=== PATIENT | female | born 1950 | race Caucasian/White ===

== ENCOUNTER → 2016-09-30 | Outpatient (CLI) | payer BC, OTHER ==
[2016-09-30 08:51] LABS: BASOPHILS # (AUTO) 0.15 10*3/UL; BASOPHILS % (AUTO) 1.2 % (0-1); EOSINOPHILS # (AUTO) 0.21 10*3/UL; EOSINOPHILS % (AUTO) 1.7 % (0-8); HEMOGLOBIN 15.3 g/dL (12.0-16.0); LYMPHOCYTES # (AUTO) 4.59 10*3/uL; MEAN CORPUSCULAR HEMOGLOBIN 27.2 PG (27-31); MEAN CORPUSCULAR HGB CONC 33.3 g/dL (33-37); MEAN CORPUSCULAR VOLUME 81.9 FL (81-99); MONOCYTES # (AUTO) 0.94 10*3/UL (0.3-0.8); MONOCYTES % (AUTO) 7.7 % (5-15); NEUTROPHILS # (AUTO) 6.22 10*3/UL; NEUTROPHILS % (AUTO) 50.9 % (50-80); RED BLOOD COUNT 5.62 10^6/uL (4.20-5.40)
[2016-09-30 08:56] LABS: PLATELET MORPHOLOGY COMMENT NORMAL MORPHOLOGY (NORM); RBC MORPHOLOGY COMMENT NORMAL MORPHOLOGY (NORM); WBC MORPHOLOGY COMMENT NORMAL MORPHOLOGY (NORM)
[2016-09-30 09:03] LABS: BLOOD UREA NITROGEN 23 mg/dL (7-22); BUN/CREATININE RATIO 28.75 (6-20); CALCIUM 9.1 mg/dL (8.7-10.7); CHOL/HDL RATIO 4.97 RATIO (0-4.0); EST GLOMERULAR FILTRATION > 60 (>60 ml/min/1.73m(2)); HDL CHOLESTEROL 36 mg/dL (40-150); SERUM ALBUMIN 4.4 g/dL (3.5-4.8); SERUM CHOLESTEROL 179 mg/dL (120-200)
[2016-09-30 10:37] LABS: FREE T4 (FREE THYROXINE) 1.31 ng/dL (0.93-1.71)
== END ==
LOC: LAB 08:33
PROVIDERS: ATTEND Internal Medicine
DX: E03.9 Hypothyroidism, unspecified (principal); R53.83 Other fatigue; G25.9 Extrapyramidal and movement disorder, unspecified; E66.8 Other obesity; Z86.711 Personal history of pulmonary embolism
CPT/HCPCS: 36415; 80053; 80061; 84439; 84443; 85025; 99214; G0463

== ENCOUNTER → 2016-11-02 | Outpatient (CLI) | payer OTHER, BC | LOC: LAB 07:58 | PROVIDERS: ATTEND Internal Medicine | DX: E03.9 Hypothyroidism, unspecified (principal); G20 Parkinson's disease; R53.83 Other fatigue; Z86.711 Personal history of pulmonary embolism | CPT/HCPCS: 36415; 84443; 99214; G0463 ==

== ENCOUNTER 2018-12-26 12:57 | Observation (INO) ==
[2018-12-26] MEDS ORDERED: ASPIRIN 81 MG (BABY) CHEWABLE TABLET PO ONE (13:20)
--- NOTE | 2018-12-26 13:22 | EKG ---
[address] [place] [address] [place] [address] Test Date: 2018-12-26 Pat Name: MONALISA HAYES Department: ER Room: Gender: Female Attending Ambulatory Care: JOSH : 1950 Requested By: GORDON GUTIERREZ Order Number: [id number] Reading MD: Tyrese Granados Measurements Intervals [place] Rate: 69 P: 27 AR: 153 QRS: -39 QRSD: 90 T: -8 QT: 388 QTc: 416 Interpretive Statements SINUS RHYTHM POSSIBLE LATERAL MYOCARDIAL INFARCTION PROBABLY OLD, QUESTION LEAD PLACEMENT INFERIOR MYOCARDIAL INFARCTION OF INDETERMINATE AGE Compared to ECG 09/18/2015 15:17:41 Ventricular premature complex(es) no longer present Myocardial infarct finding still present Electronically Signed On 12-26-2018 13:30:30 MDT by Tyrese Granados [id number]
[2018-12-26 13:25] LABS: BASOPHILS # (AUTO) 0.02 10*3/UL; BASOPHILS % (AUTO) 0.3 % (0-1); EOSINOPHILS # (AUTO) 0.09 10*3/UL; EOSINOPHILS % (AUTO) 1.1 % (0-8); Hematocrit [HCT] 43.7 % (37.0-47.0); Hemoglobin [HGB] 14.3 g/dL (12.0-16.0); LYMPHOCYTES # (AUTO) 1.41 10*3/uL; MEAN CORPUSCULAR HGB CONC 32.7 g/dL (33-37); MEAN CORPUSCULAR VOLUME 83.7 FL (81-99); MEAN PLATELET VOLUME 9.6 FL (7.4-12.2); MONOCYTES # (AUTO) 0.71 10*3/UL (0.3-0.8); NEUTROPHILS # (AUTO) 5.66 10*3/UL; NEUTROPHILS % (AUTO) 71.4 % (50-80); RED BLOOD COUNT 5.22 10^6/uL (4.20-5.40)
[2018-12-26 13:27] LABS: PLATELET MORPHOLOGY COMMENT NORMAL MORPHOLOGY (NORM); RBC MORPHOLOGY COMMENT NORMAL MORPHOLOGY (NORM); WBC MORPHOLOGY COMMENT NORMAL MORPHOLOGY (NORM)
[2018-12-26 13:33] LABS: BLOOD UREA NITROGEN 17 mg/dL (7-22); BUN/CREATININE RATIO 24.28 (6-20); SERUM ALBUMIN 4.2 g/dL (3.5-4.8)
--- NOTE | 2018-12-26 14:05 | DI ---
XR CXR 1VW,12/26/2018 1:32 PM: Clinical History: Chest pain Previous Exam: None at this facility. Findings: A single frontal radiograph of the chest is obtained, and demonstrate clear lungs. The cardiomediasti num and bony thorax are unremarkable. Postsurgical changes are seen at the cervicothoracic junction. Impression: No acute cardiopulmonary disease.
[2018-12-26] MEDS ORDERED: TEMAZEPAM 15 MG CAPSULE PO PRN (15:38)
[2018-12-26] MEDS ORDERED: NITROGLYCERIN 0.4 MG SL TAB (BOTTLE OF 3) SL PRN (15:38)
[2018-12-26] MEDS ORDERED: CALCIUM CARBONATE 500 MG (TUMS) CHEWABLE TABLET PO PRN (15:38)
[2018-12-26] MEDS ORDERED: LIDOCAINE W/ SODIUM BICARB 0.5 ML SYR SUBD PRN (15:38)
[2018-12-26] MEDS ORDERED: ClonazePAM Tab 1 MG TABLET PO PRN (15:38)
[2018-12-26 17:25] LABS: CHOL/HDL RATIO 4.71 RATIO (0-4.0)
[2018-12-26] MEDS: Carbidopa/Levodopa 25/100mg Tab PO SCH ×2 (17:29→20:46)
[2018-12-26] MEDS: PRAMIPEXOLE 0.5 MG PO SCH (17:30)
--- NOTE | 2018-12-26 17:59 | PDOC ---
HPI - History of Present Illness Date of Service: 12/26/18 Time of Service: 17:55 Chief Complaint: Chest pain History of Present Illness: This very pleasant 68-year-old female with history of Parkinson's disease, hypertension, and other medical issues who presents today accompanied with her daughter with complaints of chest pain. She described it as left-sided in nature. She denies any shortness of breath, nausea, or vomiting with this chest pain. She states a couple of days ago, she was looking [place] at [place] and felt lightheaded and nearly passed out. She did not have any vasovagal prodromal symptoms with that. She denies any heart fluttering or arrhythmic problems. She denies any fever or cough with these symptoms. She was brought into the emergency room for complaints of this chest pain, and initial troponin was negative. Her d-dimer was normal. She had an EKG that was nonspecific. The patient does not smoke. She does not have any diabetes, or high cholesterol. There is no family history of heart disease. She does not have hypertension. The patient denies any exacerbating factors, does not describe any exertional component with the chest pain. She states it was fleeting, and is already resolved. I did see on review of records that she had had descending aortic aneurysm but it was not quantified in terms of size. She has not had any echocardiograms since then to her knowledge. She denies heartburn and states that she is on a proton pump inhibitor, does not have reproducible pain, but does state that she gets anxious at times. Past Medical History Medical History: 1. Parkinson's disease. 2. Anxiety disorder. 3. Hypothyroidism, recently Synthroid dose was reduced. 4. History of pulmonary emboli, apparently provoked? Surgical History: 1. Cholecystectomy. 2. Knee replacement. 3. Back surgery and neck surgery Pertinent Family History: No family history of heart disease Past Social History: Does not smoke or drink alcohol. Has 3 children described as healthy. . [place]. Tobacco Use: Never Smoker In the Past 12 Months, Have Used or Abuse Any of the Following Substance: None Alcohol Use: None Medication / Allergies Home Medications: Home Medications Medication Instructions Recorded Confirmed Multivitamin [Daily Vitamin] 1 tab ORAL QD tab 05/04/12 12/26/18 carbidopa 25 mg-levodopa 100 mg 3 tab PO QID #0 02/17/17 12/26/18 tablet omeprazole 40 mg capsule,delayed 40 mg PO DAILY #30 cap 02/17/17 12/26/18 release temazepam 30 mg capsule 30 mg PO QHS PRN #30 cap 06/27/18 12/26/18 clonazepam 0.5 mg tablet 0.5 mg PO TID PRN #90 tab 08/25/18 12/26/18 bupropion HCl 75 mg tablet 150 mg PO ONCE tab 09/18/18 12/26/18 levothyroxine 112 mcg tablet 112 mcg PO QDAY #90 tab 12/20/18 12/26/18 pramipexole 0.5 mg tablet 0.5 mg PO QDAY #90 tab 12/20/18 12/26/18 Allergies/Adverse Reactions: Allergies Allergy/AdvReac Type Severity Reaction Status Date / Time Penicillins Allergy Mild RASH Verified 12/26/18 15:45 Review of Systems - Review of Systems All Systems: Reviewed & No Additional Complaints Except as Stated (I did a 12 point review systems and it was negative other than that discussed below and in the history of present illness.) Exam - Vitals Vital Signs: Vital Signs Temperature 98.0 F Temperature Source Temporal Artery Scan Pulse Rate [Pulse Oximeter 98 Right] Pulse Rate [left finger] 68 Pulse Rate 78 Respiratory Rate 18 Blood Pressure [Left Arm] 100/64 Blood Pressure 152/98 Pulse Ox [left finger] 95 Pulse Ox 94 Oxygen Delivery Method [left Room Air finger] Oxygen Delivery Method Room Air Height 5 ft 7 in Weight 209 lb - General General Appearance: No Acute Distress, Cooperative - Head Head Exam: Normal Inspection, Normocephalic, Atraumatic - Eye Eye Exam: POSITIVE: No Scleral Icterus - ENT ENT Exam: POSITIVE: Mucous Membranes Moist - Neck Neck Exam: Normal Inspection, No Tenderness, No Lymphadenopathy, No Thyromegaly, JVP is not Raised - Respiratory Respiratory Exam: POSITIVE: Clear to Auscultation - Bilaterally, Breathing Non Labored - Cardiovascular Cardiovascular Exam: POSITIVE: RRR, No Murmur, No Clicks, No Gallops, No Rubs, No JVD Additional Cardiovascular Details: No reproducible chest pain on my exam. - GI/Abdominal GI/Abdominal Exam: POSITIVE: Normal Bowel Sounds - Rectal Rectal Exam: POSITIVE: Deferred - External Exam: POSITIVE: Deferred Exam: POSITIVE: Deferred - Extremities Extremities Exam: POSITIVE: No Clubbing Present, No Edema Present, No Cyanosis Present - Neurological Neurological Exam: POSITIVE: Alert, Oriented x 3, No Facial Droop, Speech Intact / Clear, Moves All Extremities Equally Additional Neurological Exam Details: She does have tremor consistent with Parkinson's. - Psychiatric Psychiatric Exam: POSITIVE: Normal Affect, Normal Mood Results - Labs CBC and BMP: 12/26/18 13:16 12/26/18 13:16 Additional Lab Results: Laboratory Results 12/26/18 12/26/18 12/26/18 13:16 13:16 13:16 WBC 7.92 RBC 5.22 Hgb 14.3 Hct 43.7 MCV 83.7 MCH 27.4 MCHC 32.7 L RDW Std Deviation 43.2 RDW Coeff of Agustin 14.2 Plt Count 277 MPV 9.6 Immature Gran % (Auto) 0.4 Neut % (Auto) 71.4 Lymph % (Auto) 17.8 [place] % (Auto) 9.0 Eos % (Auto) 1.1 Baso % (Auto) 0.3 Immature Gran # (Auto) 0.03 Neut # (Auto) 5.66 Lymph # (Auto) 1.41 [place] # (Auto) 0.71 Eos # (Auto) 0.09 Baso # (Auto) 0.02 WBC Morphology Comment Normal morphology Plt Morphology Comment Normal morphology RBC Morph Comment Normal morphology D-Dimer 480 Sodium 139 Potassium 4.1 Chloride 102 Carbon Dioxide 25 Anion Gap 12 BUN 17 Creatinine 0.7 Estimated GFR > 60 BUN/Creatinine Ratio 24.28 H Glucose 111 H Calculated Osmolality 290.0 Calcium 9.3 Total Bilirubin 0.6 AST 27 ALT 11 Alkaline Phosphatase 100 CK-MB (CK-2) Troponin I Total Protein 7.9 Albumin 4.2 Globulin 3.7 Albumin/Globulin Ratio 1.10 L Triglycerides Cholesterol LDL Cholesterol, Calc VLDL Cholesterol HDL Cholesterol Cholesterol/HDL Ratio TSH Free T4 12/26/18 12/26/18 12/26/18 13:16 13:16 17:00 WBC RBC Hgb Hct MCV MCH MCHC RDW Std Deviation RDW Coeff of Agustin Plt Count MPV Immature Gran % (Auto) Neut % (Auto) Lymph % (Auto) [place] % (Auto) Eos % (Auto) Baso % (Auto) Immature Gran # (Auto) Neut # (Auto) Lymph # (Auto) [place] # (Auto) Eos # (Auto) Baso # (Auto) WBC Morphology Comment Plt Morphology Comment RBC Morph Comment D-Dimer Sodium Potassium Chloride Carbon Dioxide Anion Gap BUN Creatinine Estimated GFR BUN/Creatinine Ratio Glucose Calculated Osmolality Calcium Total Bilirubin AST ALT Alkaline Phosphatase CK-MB (CK-2) 0.69 Troponin I < 0.012 < 0.012 Total Protein Albumin Globulin Albumin/Globulin Ratio Triglycerides Cholesterol LDL Cholesterol, Calc VLDL Cholesterol HDL Cholesterol Cholesterol/HDL Ratio TSH Free T4 12/26/18 12/26/18 17:11 17:11 WBC RBC Hgb Hct MCV MCH MCHC RDW Std Deviation RDW Coeff of Agustin Plt Count MPV Immature Gran % (Auto) Neut % (Auto) Lymph % (Auto) [place] % (Auto) Eos % (Auto) Baso % (Auto) Immature Gran # (Auto) Neut # (Auto) Lymph # (Auto) [place] # (Auto) Eos # (Auto) Baso # (Auto) WBC Morphology Comment Plt Morphology Comment RBC Morph Comment D-Dimer Sodium Potassium Chloride Carbon Dioxide Anion Gap BUN Creatinine Estimated GFR BUN/Creatinine Ratio Glucose Calculated Osmolality Calcium Total Bilirubin AST ALT Alkaline Phosphatase CK-MB (CK-2) Troponin I Total Protein Albumin Globulin Albumin/Globulin Ratio Triglycerides 107 Cholesterol 184 LDL Cholesterol, Calc 123.600 VLDL Cholesterol 21 HDL Cholesterol 39 L Cholesterol/HDL Ratio 4.71 H TSH Pending Free T4 1.61 - EKG Data -: EKG Interpreted by Me Rate: Normal EKG Shows Normal: Sinus Rhythm - EKG Data EKG Interpretation: Nonspecific ST-T Wave Changes - Imaging Status: Image Reviewed by Me (Chest x-ray appears negative on my view.) Assessment and Plan - Patient Problems (1) Chest pain Current Visit: Yes Status: Acute Code(s): R07.9 - Chest pain, unspecified Qualifiers: Chest pain type: unspecified Qualified Code(s): R07.9 - Chest pain, unspecified (2) Parkinson's disease Current Visit: Yes Status: Chronic Onset Date: 12/24/13 Code(s): G20 - Parkinson's disease (3) GERD (gastroesophageal reflux disease) Current Visit: Yes Status: Chronic Onset Date: 03/26/16 Code(s): K21.9 - Gastro-esophageal reflux disease without esophagitis Qualifiers: Esophagitis presence: esophagitis presence not specified Qualified Code(s): K21.9 - Gastro-esophageal reflux disease without esophagitis (4) Acquired hypothyroidism Current Visit: Yes Status: Chronic Onset Date: 11/02/16 Code(s): E03.9 - Hypothyroidism, unspecified (5) History of pulmonary embolism Current Visit: Yes Status: Acute Code(s): Z86.711 - Personal history of pulmonary embolism - Assessment / Plan Additional Assessment/Plan Details: Plan: 1. Do serial enzymes and repeat EKG as necessary 2. Aspirin daily. 3. will consider beta antonio if necessary 4. if diagnosis becomes ACS or unstable angina, add therapeutic lovenox or heparin, but otherwise will dose for DVT prophylaxis based on risk assessment 5. We'll have the patient do a stress test chemical 6. Proton pump inhibitor may be necessary if GERD like symptoms develop. And we will continue that from her home medications 5. Nitroglycerin when necessary for chest pain 6. Morphine if necessary via IV, but hold off on writing for until patient complains of pain again 7. Oxygen if necessary 8. If testing indicates further need for evaluation, discussion with cardiology. If testing is negative for myocardial infarction and no further indication for coronary artery disease, consider outpatient workup for GI source, pulmonary source, or other diagnosis 9. Continue anxiolytics 10. Given the finding on echocardiogram in 2012, ordered an echocardiogram. If we cannot get that done prior to completion of the stress test, may arrange follow-up appointment with cardiology to evaluate with echocardiogram as an outpatient. 11. Check lipid panel. TSH and free T4 will be repeated but really that infor mation will be much more valuable in about the next 3-4 weeks. 12. She's had a history of a pulmonary emboli in the past. Her d-dimer was negative, but given her history of prior pulmonary emboli think we should go ahead and do a CTA to rule out pulmonary embolism.
[2018-12-26 18:08] LABS: URINE SAMPLE TYPE VOIDED SPECIMEN
[2018-12-26 18:09] LABS: AMPHETAMINE SCREEN NEGATIVE (NEG); CANNABINOID SCREEN,URINE NEGATIVE (NEG); COCAINE SCREEN NEGATIVE (NEG); METHADONE URINE SCREEN NEGATIVE (NEG); METHAMPHETAMINES SCREEN,URINE NEGATIVE (NEG); OPIATE SCREEN,URINE NEGATIVE (NEG)
--- NOTE | 2018-12-26 20:45 | DI ---
CT CTA Chest Non-Coronary [facility],12/26/2018 6:41 PM: Clinical History: Chest pain and history of pulmonary embolism. Previous Exam: None at this facility. Findings: Multiple helically acquired CT images are obtained through the chest following a CT chest angiogram p rotocol, and demonstrate clear lungs. The pulmonary arteries are normal and symmetric without filling defect or truncation to suggest pulmo nary embolism. The upper abdomen is unremarkable. There is no infiltrate nor effusion. The thyroid is normal. The cardiomediastinum is unremarkable. Mild degenerative changes of the thoracic spine are seen. Impression: No evidence of pulmonary embolism.
--- NOTE | 2018-12-27 02:06 | PDOC ---
Chest Pain HPI - General Chief Complaint: Chest Pain Stated Complaint: CHEST PAIN , DIZZY, WEAK Date Seen by Provider: 12/26/18 Time Seen by Provider: 13:10 Source: Patient, Other (daughter) Exam Limitations: POSITIVE: No limitations Treatment Prior to Arrival: REPORTS: None Nurse's Notes Reviewed & Considered: Yes - History of Present Illness Initial Comments: The patient is a 68-year-old female who is brought to the emergency room by her daughter. The patient called her internal medicine physicians office and she was apparently sent to the emergency room by the office nurse. Patient complains of a 3 day history of intermittent central anterior chest pain. She states that the episodes of chest pain have lasted up to 1 hour. She states that sometimes the pain seems to be exacerbated by deep inspiration. She states that yesterday "I got dizzy and blacked out" at around 8 AM. Patient has a history of Parkinson's and is on Sinemet 4 times a day and is also on praximole. She has no known history of cardiac or pulmonary problems. No dyspnea or cough. No fevers or chills. No GI or symptoms. Body Location Affected: REPORTS: Chest Timing: REPORTS: Intermittent Duration: >24 hours (3 days) Severity: Moderate Intermittent Episodes Lasting (minutes): 60 Persistent/Worse since (date): 12/23/18 Context: REPORTS: Rest Quality: REPORTS: Aching, "Pain" Radiation: REPORTS: None Associated Symptoms: REPORTS: Hurts to Breathe ("Sometimes "). DENIES: Nausea, Vomiting, Diaphoresis, Shortness of Breath, Palpitations, Productive Cough (bl ood), Productive Cough (sputum), Weakness, Dizziness Modifying Factors: improves with: None Reported Similar Symptoms Previously: No Recently seen/treated/hospitalized: No Any Prior Injuries Related to Current Complaint?: No - Patient Home Medications Home Medications: Home Medications Multivitamin [Daily Vitamin] 1 tab ORAL QD tab 05/04/12 carbidopa 25 mg-levodopa 100 mg tablet 3 tab PO QID #0 02/17/17 omeprazole 40 mg capsule,delayed release 40 mg PO DAILY #30 cap 02/17/17 temazepam 30 mg capsule 30 mg PO QHS PRN #30 cap 06/27/18 clonazepam 0.5 mg tablet 0.5 mg PO TID PRN #90 tab 08/25/18 bupropion HCl 75 mg tablet 150 mg PO ONCE tab 09/18/18 levothyroxine 112 mcg tablet 112 mcg PO QDAY #90 tab 12/20/18 pramipexole 0.5 mg tablet 0.5 mg PO QDAY #90 tab 12/20/18 - Patient Allergies Allergies/Adverse Reactions: Allergies Allergy/AdvReac Type Severity Reaction Status Date / Time Penicillins Allergy Mild RASH Verified 12/26/18 15:45 Past Medical History - heen HEENT History: Denies History Cardiovascular History: Denies History Respiratory History: Pulmonary Embolism Gastrointestinal History: GERD, Hiatal Hernia Additional Gastrointestinal History: HISTORY OF ABOVE. NO PROBLEMS NOW Genitourinary History: Denies History Endocrine History: Hypothyroidism Musculoskeletal History: Arthritis, Back Pain Prosthesis or Implant: Yes (TOTAL LEFT KNEE REPLACEMENT) Neurological History: Parkinson's Additional Neurological History: POSSIBLE NERVE IMPINGEMENT IN BACK CAUSING RIGHT SIDED WEAKNESS. IS GOING TO GET FURTHER EVAL. POSSIBLE FORM OF PARKINSON'S PER PATIENT'S NEUROLOGIST/STARTED ON CARB/LEVO RECENTLY Blood Disorders: Denies History Psychiatric History: Depression History of Sexually Transmitted Diseases: No Female Reproductive History: Denies History Obstetrical History: Denies History Cancer History: Denies History In Past Year Been Physically Harmed or Verbally Threatened: No History of MDRO: Yes Type of MDRO: C-Diff Other Type of MDRO: C dif History of Other Communicable Diseases: No Tobacco Use: Never Smoker Alcohol Use: None In the Past 12 Months, Have Used or Abuse Any Substance: None Previous Surgical History: Yes Type / Date of Surgery: GALLBLADDER/ LEFT TOTAL KNEE REPLACEMENT/ RIGHT MAURI/BACK SURGERY/NECK SURGER/COLONOSCOPY Anesthesia Reactions: Yes (Pt. states last surgery bp dropped) Malignant Hyperthermia: No Significant Family History: Cancer Additional Family History: FATHER HAD BRAIN TUMOR AND MOTHER HAD KIDNEY CANCER, DAUGHTER HAD COLON CANCER Past Medical History Reviewed: Reviewed - No Changes ROS - Limitations ROS Limitations: No Limitations Constitution: REPORTS: Denies Symptoms Cardiovascular: REPORTS: Chest Pain Respiratory: REPORTS: Denies Resp Symptoms Neurological: REPORTS: Denies Neuro Symptoms Gastrointestinal: REPORTS: Denies GI Symptoms Endocrine: REPORTS: Denies Symptoms Musculoskeletal: REPORTS: Denies MS Symptoms Genitourinary: REPORTS: Denies Symptoms Eyes: REPORTS: Denies Symptoms ENT: REPORTS: Denies Symptoms Skin: REPORTS: Denies Skin Symptoms Lympathic: REPORTS: Denies Lympathic Symptoms Immunologic: POSITIVE: Denies Symptoms Psychiatric: POSITIVE: Denies Psych Symptoms Chest Pain PE - General Appearance General Appearance: REPORTS: Alert, Cooperative, No Acute Distress, No Evidence of Trauma - HEENT HEENT: POSITIVE: Head Inspection Nml, Eyes Inspection Nml, Ears Inspection Nml, Nose Inspection Nml, Oral/Dental Inspect. Nml, Pharynx Inspect. Nml, PERRL, EOMI - Neck Neck: REPORTS: Normal Inspection, No Carotid Bruit - Respiratory Respiratory: REPORTS: No Respiratory Distress, Breath Sounds Normal, Chest Non- Tender - Cardiovascular Cardiovascular: REPORTS: Regular Rate and Rhythm, Heart Sounds Normal, Equal Pulses, Strong Pulses, No Murmur, No Gallop, No Friction Rub, No JVD Peripheral Pulses: Radial (R): 2+, Radial (L): 2+ - Abdomen Abdomen: Soft: (All Quadrants), Normal Bowel Sounds: (All Quadrants), Denies Tenderness: (All Quadrants), No Splenomegaly: (All Quadrants), No Hepatomegaly: (All Quadrants), No Guarding: (All Quadrants), No Rebound: (All Quadrants), No Palpable Pulse: (All Quadrants), No Palpabale Mass: (All Quadrants), No Distention: (All Quadrants), No Rigidity: (All Quadrants) - Skin Skin: REPORTS: Intact, Normal For Race, Warm, Dry, No Rash - Extremities Extremity: Non-Tender: (All Extremities), Normal ROM: (All Extremities), Normal Inspection: (All Extremities) - Neurological / Psychological Neurological: POSITIVE: Affect Apporpriate, 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, 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, Motor Normal, Sensation Normal Images - Complete Complete: 1 - Area of described pain Chest Pain Progress - Results Reviewed by me Xrays/CTs/US Reviewed by me: Yes Discussed with Radiologist: Yes Radiology Findings: Chest x-ray normal Lab Results Reviewed by Me: Yes CBC and BMP: 12/26/18 13:16 12/26/18 13:16 Lab Results:: Laboratory Results 12/26/18 12/26/18 12/26/18 13:16 13:16 13:16 WBC 7.92 RBC 5.22 Hgb 14.3 Hct 43.7 MCV 83.7 MCH 27.4 MCHC 32.7 L RDW Std Deviation 43.2 RDW Coeff of Agustin 14.2 Plt Count 277 MPV 9.6 Immature Gran % (Auto) 0.4 Neut % (Auto) 71.4 Lymph % (Auto) 17.8 [place] % (Auto) 9.0 Eos % (Auto) 1.1 Baso % (Auto) 0.3 Immature Gran # (Auto) 0.03 Neut # (Auto) 5.66 Lymph # (Auto) 1.41 [place] # (Auto) 0.71 Eos # (Auto) 0.09 Baso # (Auto) 0.02 WBC Morphology Comment Normal morphology Plt Morphology Comment Normal morphology RBC Morph Comment Normal morphology D-Dimer 480 Sodium 139 Potassium 4.1 Chloride 102 Carbon Dioxide 25 Anion Gap 12 BUN 17 Creatinine 0.7 Estimated GFR > 60 BUN/Creatinine Ratio 24.28 H Glucose 111 H Calculated Osmolality 290.0 Calcium 9.3 Total Bilirubin 0.6 AST 27 ALT 11 Alkaline Phosphatase 100 CK-MB (CK-2) Troponin I Total Protein 7.9 Albumin 4.2 Globulin 3.7 Albumin/Globulin Ratio 1.10 L 12/26/18 12/26/18 13:16 13:16 WBC RBC Hgb Hct MCV MCH MCHC RDW Std Deviation RDW Coeff of Agustin Plt Count MPV Immature Gran % (Auto) Neut % (Auto) Lymph % (Auto) [place] % (Auto) Eos % (Auto) Baso % (Auto) Immature Gran # (Auto) Neut # (Auto) Lymph # (Auto) [place] # (Auto) Eos # (Auto) Baso # (Auto) WBC Morphology Comment Plt Morphology Comment RBC Morph Comment D-Dimer Sodium Potassium Chloride Carbon Dioxide Anion Gap BUN Creatinine Estimated GFR BUN/Creatinine Ratio Glucose Calculated Osmolality Calcium Total Bilirubin AST ALT Alkaline Phosphatase CK-MB (CK-2) 0.69 Troponin I < 0.012 Total Protein Albumin Globulin Albumin/Globulin Ratio EKG Interpreted/Reviewed By Me:: Yes (poor R-wave progression anterolateral leads; Q waves 3 and aVF) EKG Interpretation:: POSITIVE: Normal Sinus Rhythm, Normal Rate, Normal Intervals, Normal [place], Normal QRS (Q waves in leads 3 and aVF), Normal ST/T (Poor R-wave progression anterolateral leads), Abnormal EKG, Previous EKG Reviewed (Unchanged from 2016) - Patient's Progress Pain Medication Addressed: POSITIVE: Not Applicable School/Work Release Addressed: POSITIVE: Not Applicable Re-Examine Time: 14:30 Re-Examine Comment: Note chest pain on discharge. Patient resting comfortably. Alternatives of treatment discussed with patient and her daughter. Patient admitted by hospitalist for further evaluation and treatment of her chest pain. Status: POSITIVE: Improved, Re-Examined - Consult Consult (If Yes, Name of Consulting MD & Time Called): Yes (Dr. Amin, hospitalist, [id number]) Consulting MD will see pt:: POSITIVE: [facility] Admit Counseled: POSITIVE: Patient, Family (Daughter), RE: Lab Results, RE: Radiology Results, RE: DX, RE: Need for F/U Patient Care Time - Estimated PCT Patient Care Time (In Minutes): 45 Vital Signs - VS Reviewed Vital Signs Reviewed: Yes Discharge Clinical Impression: Chest pain Discharge Disposition: Admit to Inpatient Condition: Stable Patient Problem(s) Reviewed: Yes Date Decision to Admit to Inpatient: 12/26/18 Time Decision to Admit to Inpatient: 14:20
[2018-12-27] MEDS: LEVOTHYROXINE 112 MCG TABLET PO SCH (06:15)
--- NOTE | 2018-12-27 08:52 | STRESSTEST ---
[place] 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 ruled out for [place]. No HTN, no cholesterol, not diabetic, does not smoke, no family history of CAD. resting EKG is NSR. does have PACs. exercised in Lexiescan protocol this AM, felt flushed, SOB, all resolved. no chest pain. had sinus tachycardia. Plan: stress images later today, rest images tomorrow, radiology to read. [id number]
[2018-12-27] MEDS: PRAMIPEXOLE 0.5 MG PO SCH (09:15)
[2018-12-27] MEDS: Carbidopa/Levodopa 25/100mg Tab PO SCH ×4 (09:15→20:30)
[2018-12-27] MEDS: ASPIRIN 81 MG (BABY) CHEWABLE TABLET PO SCH (09:16)
[2018-12-27] MEDS: Multivitamin Tab 1 TAB PO SCH (09:17)
[2018-12-27] MEDS: BuPROPion SR Tab 150 MG TAB PO SCH (09:18)
[2018-12-27] MEDS: OMEPRAZOLE 40 MG CAPSULE PO SCH (09:18)
--- NOTE | 2018-12-27 10:11 | PDOC(PROG) ---
Date of Service: 12/27/18 Time of Service: 10:05 Interval History: Seen and evaluated earlier today. No chest pain. No nausea or vomiting. PACs noted on telemetry monitoring. Feels very tired this morning. Objective : Data - Labs CBC and BMP: 12/26/18 13:16 12/26/18 13:16 Additional Lab Results: 12/26/18 12/26/18 12/26/18 13:16 17:00 17:11 Troponin I < 0.012 < 0.012 Triglycerides 107 Cholesterol 184 LDL Cholesterol, Calc 123.600 VLDL Cholesterol 21 HDL Cholesterol 39 L Cholesterol/HDL Ratio 4.71 H TSH Free T4 12/26/18 12/27/18 17:11 06:25 Troponin I < 0.012 Triglycerides Cholesterol LDL Cholesterol, Calc VLDL Cholesterol HDL Cholesterol Cholesterol/HDL Ratio TSH 0.146 L Free T4 1.61 Objective : Exam - General General Appearance: No Acute Distress, Cooperative Additional General Exam Details: Selected Entries 12/27/18 04:56 12/27/18 07:18 12/27/18 09:00 Temperature 97.4 F Pulse Rate [Pulse Oximeter Right] 71 Pulse Rate [left finger] 74 Respiratory Rate 20 Blood Pressure [Left Arm] 162/72 Blood Pressure Mean [Left Arm] 102 Pulse Ox 90 Pulse Ox [left finger] 94 Oxygen Delivery Method Room Air Oxygen Delivery Method [left finger] Nasal Cannula Oxygen Flow Rate [left finger] 1 - Eye Eye Exam: No Scleral Icterus - ENT ENT Exam: Mucous Membranes Moist - Neck Neck Exam: JVP is not Raised - Respiratory Respiratory Exam: Clear to Auscultation - Bilaterally, Breathing Non Labored - Cardiovascular Cardiovascular Exam: RRR, No Murmur, No Clicks, No Gallops, No Rubs, No JVD - GI/Abdominal GI/Abdominal Exam: Normal Bowel Sounds, Non Tender, Non Distended, Soft - Extremities Extremities Exam: No Clubbing Present, No Edema Present, No Cyanosis Present - Neurological Neurological Exam: Alert, Oriented x 3, No Facial Droop, Speech Intact / Clear, Moves All Extremities Equally Assessment and Plan - Patient Problems (1) Chest pain Current Visit: Yes Status: Acute Code(s): R07.9 - Chest pain, unspecified Qualifiers: Chest pain type: unspecified Qualified Code(s): R07.9 - Chest pain, unspecified (2) Parkinson's disease Current Visit: Yes Status: Chronic Onset Date: 12/24/13 Code(s): G20 - Parkinson's disease (3) GERD (gastroesophageal reflux disease) Current Visit: Yes Status: Chronic Onset Date: 03/26/16 Code(s): K21.9 - Gastro-esophageal reflux disease without esophagitis Qualifiers: Esophagitis presence: esophagitis presence not specified Qualified Code(s): K21.9 - Gastro-esophageal reflux disease without esophagitis (4) Acquired hypothyroidism Current Visit: Yes Status: Chronic Onset Date: 11/02/16 Code(s): E03.9 - Hypothyroidism, unspecified (5) History of pulmonary embolism Current Visit: Yes Status: Acute Code(s): Z86.711 - Personal history of pulmonary embolism - Assessment / Plan Additional Assessment/Plan Details: At this time we were not able to get any isotope doses afternoon, so we could do the stress portion today and have to do the rest portion tomorrow for the stress test. Echocardiogram ordered. This is the descending thoracic aorta documented in the past and no reason follow-up echocardiograms. So we'll take a look. CTA chest was negative for PE. I took a look of the study and I do not notice any pneumonias. Rest images tomorrow, and we will see after images are compiled what radiology findings In the meantime, continue telemetry monitoring
[2018-12-28 05:00] LABS: BLOOD UREA NITROGEN 14 mg/dL (7-22); BUN/CREATININE RATIO 23.33 (6-20)
[2018-12-28] MEDS: LEVOTHYROXINE 112 MCG TABLET PO SCH (05:24)
[2018-12-28] MEDS: OMEPRAZOLE 40 MG CAPSULE PO SCH (08:58)
[2018-12-28] MEDS: Carbidopa/Levodopa 25/100mg Tab PO SCH ×3 (08:58→17:31)
[2018-12-28] MEDS: Multivitamin Tab 1 TAB PO SCH (08:58)
[2018-12-28] MEDS: ASPIRIN 81 MG (BABY) CHEWABLE TABLET PO SCH (08:58)
[2018-12-28] MEDS: PRAMIPEXOLE 0.5 MG PO SCH (08:58)
[2018-12-28] MEDS: BuPROPion SR Tab 150 MG TAB PO SCH (08:59)
[2018-12-28 16:59] VITALS: BP 123/76; RESP 32; TEMP 97.6
--- NOTE | 2018-12-28 17:23 | DCSUMMARY ---
Hospitalization Summary Admit Date: 12/26/2018 Discharge Date: 12/28/18 Primary Diagnosis:: chest pain, resolved, suspect related to anxiety Secondary Diagnosis:: Negative stress test Parkinson's Documentation of a descending aortic aneurysm in 2012 on echocardiogram but not given size, no other echocardiograms on record, repeated here but results are pending. Hospital Course: This very pleasant 68-year-old female that was a with chest pain, she ruled out for myocardial infarction. We did a stress study, with Lexiscan protocol, and the patient had a negative stress test. 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 I gave her prescription in case there are any problems with her echocardiogram here. She had a CTA of the chest that was negative for pulmonary emboli. Chest pain has resolved. She has no shortness breath, no nausea or vomiting and she wishes to go home. Assessment and Plan: 1. As per discharge assessments noted 2. Disposition: Patient is discharged home. 3. Condition on discharge, stable and improved. 4. Diet: regular diet 5. Activities: resume normal activities 6. Follow-Up: 1. Dr. Landry in 7-10 days, review echocardiogram 2. 7. Medications at the Time of Discharge: Home Medications Medication Instructions Recorded Confirmed Multivitamin [Daily Vitamin] 1 tab ORAL QD tab 05/04/12 12/26/18 carbidopa 25 mg-levodopa 100 mg 4 tab PO TID #0 02/17/17 12/27/18 tablet omeprazole 40 mg capsule,delayed 40 mg PO DAILY #30 cap 02/17/17 12/26/18 release temazepam 30 mg capsule 30 mg PO QHS PRN #30 cap 06/27/18 12/26/18 clonazepam 0.5 mg tablet 0.5 mg PO TID PRN #90 tab 08/25/18 12/26/18 levothyroxine 112 mcg tablet 112 mcg PO QDAY #90 tab 12/20/18 12/26/18 pramipexole 0.5 mg tablet 0.5 mg PO TID #90 tab 12/20/18 12/27/18 Bupropion HCl [Bupropion Xl] 300 mg PO DAILY 12/27/18 12/27/18 Carbidopa/Levodopa [Carbidopa-Levo 1 tab PO BID 12/27/18 12/27/18 ER 50-200 Tab] Observation discharge ----- This report was transcribed using [employer] voice recognition. Despite editing, there may be grammatical and/or typographical errors in this wound care specialist report due to the limitations inherent with voice activated and speech recognition software. Exam - Vitals Vital Signs: Vital Signs Temperature 97.6 F Temperature Source Oral Pulse Rate [Pulse Oximeter 64 Right] Pulse Rate [left finger] 64 Pulse Rate 63 Respiratory Rate 32 Blood Pressure [Right Arm] 123/76 Blood Pressure [Left Arm] 162/72 Blood Pressure 152/98 Pulse Ox [left finger] 94 Pulse Ox 92 Oxygen Flow Rate [left finger] 2 Oxygen Flow Rate 2 Oxygen Delivery Method [left Nasal Cannula finger] Oxygen Delivery Method Room Air Height 5 ft 7 in Weight 207 lb 12.8 oz - General General Appearance: No Acute Distress, Cooperative - Head Head Exam: Normal Inspection, Normocephalic, Atraumatic - Eye Eye Exam: POSITIVE: No Scleral Icterus - ENT ENT Exam: POSITIVE: Mucous Membranes Moist - Neck Neck Exam: JVP is not Raised - Respiratory Respiratory Exam: POSITIVE: Clear to Auscultation - Bilaterally, Breathing Non Labored - Cardiovascular Cardiovascular Exam: POSITIVE: RRR, No Murmur, No Clicks, No Gallops, No Rubs, No JVD - GI/Abdominal GI/Abdominal Exam: POSITIVE: Normal Bowel Sounds, Non Tender, Non Distended, Soft - Extremities Extremities Exam: POSITIVE: No Clubbing Present, No Edema Present, No Cyanosis Present - Neurological Neurological Exam: POSITIVE: Alert, Oriented x 3, No Facial Droop, Speech Intact / Clear, Moves All Extremities Equally Data Peritnent Studies: 12/26/18 12/26/18 12/26/18 13:16 13:16 13:16 WBC 7.92 Hgb 14.3 Hct 43.7 Plt Count 277 Sodium Potassium Chloride Carbon Dioxide Anion Gap BUN Creatinine Estimated GFR BUN/Creatinine Ratio Glucose Calculated Osmolality Calcium Magnesium Total Bilirubin 0.6 AST 27 ALT 11 Alkaline Phosphatase 100 CK-MB (CK-2) 0.69 Troponin I Total Protein 7.9 Albumin 4.2 Globulin 3.7 Triglycerides Cholesterol LDL Cholesterol, Calc VLDL Cholesterol HDL Cholesterol Cholesterol/HDL Ratio TSH Free T4 12/26/18 12/26/18 12/26/18 13:16 17:00 17:11 WBC Hgb Hct Plt Count Sodium Potassium Chloride Carbon Dioxide Anion Gap BUN Creatinine Estimated GFR BUN/Creatinine Ratio Glucose Calculated Osmolality Calcium Magnesium Total Bilirubin AST ALT Alkaline Phosphatase CK-MB (CK-2) Troponin I < 0.012 < 0.012 Total Protein Albumin Globulin Triglycerides 107 Cholesterol 184 LDL Cholesterol, Calc 123.600 VLDL Cholesterol 21 HDL Cholesterol 39 L Cholesterol/HDL Ratio 4.71 H TSH Free T4 12/26/18 12/27/18 12/28/18 17:11 06:25 03:46 WBC Hgb Hct Plt Count Sodium 135 Potassium 3.8 Chloride 98 Carbon Dioxide 28 Anion Gap 9 BUN 14 Creatinine 0.6 Estimated GFR > 60 BUN/Creatinine Ratio 23.33 H Glucose 97 Calculated Osmolality 280.0 Calcium 9.2 Magnesium Total Bilirubin AST ALT Alkaline Phosphatase CK-MB (CK-2) Troponin I < 0.012 Total Protein Albumin Globulin Triglycerides Cholesterol LDL Cholesterol, Calc VLDL Cholesterol HDL Cholesterol Cholesterol/HDL Ratio TSH 0.146 L Free T4 1.61 12/28/18 12/28/18 03:46 07:30 WBC Hgb Hct Plt Count Sodium Potassium Chloride Carbon Dioxide Anion Gap BUN Creatinine Estimated GFR BUN/Creatinine Ratio Glucose Calculated Osmolality Calcium Magnesium 2.2 Total Bilirubin AST ALT Alkaline Phosphatase CK-MB (CK-2) Troponin I < 0.012 Total Protein Albumin Globulin Triglycerides Cholesterol LDL Cholesterol, Calc VLDL Cholesterol HDL Cholesterol Cholesterol/HDL Ratio TSH Free T4 Procedures: [address] [facility] [facility] [place] [id number] PH: [phone]: [phone] FAX: [phone] ~DIAGNOSTIC IMAGING REPORT~ Patient: MONALISA HAYES : 1950 Sex: F Age: 68 Exam Name: CT CTA Chest Non-Coronary WWOExa Date: 12/26/18 Report # : [id number] CPT Code: 00525 EMR/MR #: [id number] Ordering: VANESSA YAP Admiting: VANESSA YAP DO Primary: Stiven Landry MD Attending: VANESSA YAP DO Signed CT CTA Chest Non-Coronary WWO,12/26/2018 6:41 PM: Clinical History: Chest pain and history of pulmonary embolism. Previous Exam: None at this facility. Findings: Multiple helically acquired CT images are obtained through the chest following a CT chest angiogram protocol, and demonstrate clear lungs. The pulmonary arteries are normal and symmetric without filling defect or truncation to suggest pulmonary embolism. The upper abdomen is unremarkable. There is no infiltrate nor effusion. The thyroid is normal. The cardiomediastinum is unremarkable. Mild degenerative changes of the thoracic spine are seen. Impression: No evidence of pulmonary embolism. Dictated By: 12/26/182038 BOB TY MD. Signed By: 12/26/182044 BOB TY MD. Patient Problems - Patient Problem List (1) Chest pain Current Visit: Yes Status: Resolved Code(s): R07.9 - Chest pain, unspecified Qualifiers: Chest pain type: unspecified Qualified Code(s): R07.9 - Chest pain, unspecified Category: Medical (2) Parkinson's disease Current Visit: Yes Status: Chronic Onset Date: 12/24/13 Code(s): G20 - Parkinson's disease Category: Medical (3) GERD (gastroesophageal reflux disease) Current Visit: Yes Status: Chronic Onset Date: 03/26/16 Code(s): K21.9 - Gastro-esophageal reflux disease without esophagitis Qualifiers: Esophagitis presence: esophagitis presence not specified Qualified Code(s): K21.9 - Gastro-esophageal reflux disease without esophagitis Category: Medical (4) Acquired hypothyroidism Current Visit: Yes Status: Chronic Onset Date: 11/02/16 Code(s): E03.9 - Hypothyroidism, unspecified Category: Medical (5) History of pulmonary embolism Current Visit: Yes Status: Acute Code(s): Z86.711 - Personal history of pulmonary embolism Category: Medical (6) Anxiety Current Visit: Yes Status: Acute Code(s): F41.9 - Anxiety disorder, unspecified Category: Medical (7) Descending aortic aneurysm Current Visit: Yes Status: Acute Code(s): I71.9 - Aortic aneurysm of unspecified site, without rupture Category: Medical
[2018-12-28 17:34] VITALS: O2SAT 94
--- NOTE | 2018-12-29 14:18 | DI ---
2 DAY LEXISCAN STRESS & REST MYOCARDIAL PERFUSION SCANS, 12/27/2018 8:00 AM : Clinical History: Chest pain Previous Exam: None at this facility. The patient was stressed by Dr. Amin The standard Lexiscan protocol was used. Please see the Doctor's report. At the designated time, 35 m Ci of 99Tc-sestimibi was injected IV. Stress gated tomograms were acquired within one hour of the inj ection. For the resting scans, 35.4 mCi was injected IV and resting gated tomograms were acquired in similar fashion. Stress scans were performed on 12/27/18; the resting scans were performed on 12/28/18. Quantitative and qualitative analyses were performed. Quantitative analysis was performed with the [facility] [id number] protocols. Very low dose limited CT scans of the chest are o btained through the level of the heart for attenuation correction of the gated stress and rest cardia c SPECT data. Non-attenuated and attenuated scans were processed for review, and the attenuated scans were used for final interpretation of this study. Review of the raw data images and research quality assurance specialist files indicate that these series of examinations ar e of adequate quality. There was only 41% except the beats. Stress and rest left ventricular chamber sizes are normal. Stress and rest LVEF are 75 % and 86 %, r espectively. There is no evidence of ischemia. There is normal wall motion and normal ejection fraction. Transient ischemic dilatation ratio is 1.6, with a normal range up to 1.22 for patients stressed with the Akbar protocol and up to 1.33 for patients stressed with the Lexiscan protocol. The very low dose CT scans through the level of the heart show no coronary artery calcifications. The re is no adenopathy or evidence of lung nodules. Reading: Normal cardiac stress test.
== END 2018-12-28 18:05 | disposition home or self-care (01) ==
LOC: MED/SURG 12:57 → ER 12:57 → MED/SURG 15:30
PROVIDERS: ADMIT Family Medicine; ATTEND Family Medicine